=== PATIENT | female | born 1950 | race Caucasian/White ===

== ENCOUNTER → 2017-02-10 | Outpatient (CLI) | payer MEDICARE, BC ==
--- NOTE | 2017-02-10 11:50 | MM ---
Reason for exam: additional evaluation requested from prior study. Last mammogram was performed 1 year ago. History: Patient is postmenopausal, has history of breast cancer at age 61, has history of high-risk lesion on a previous biopsy at age 53, and history of other cancer. Family history of premenopausal breast cancer in sister at age 30 and breast cancer in sister at age 50. Mastectomy of the left breast, February 15, 2012. Malignant US LT VAD breast biopsy of the left breast, January 31, 2012. Silicone gel implant in the left breast, 2011. Benign right mammotome panel of the right breast, July 22, 2005. Stereotactic core biopsy of the left breast, June 24, 2004. 2 cyst aspirations of the left breast. Cyst aspiration of the right breast. Excisional biopsy of the left breast. Took estrogen for 6 years beginning at age 52. Taking antineoplastic for 4 years beginning at age 61. Took other hormone for 3 years. Physical Findings: Nurse did not find any significant physical abnormalities on exam. MG 3D Diag Mammo W/Cad RT CC and MLO view(s) were taken of the right breast. Prior study comparison: February 10, 2016, right breast MG 3d diag mammo w/cad RT. February 07, 2015, right breast MG diagnostic mammo RT w CAD. The breast tissue is heterogeneously dense. This may lower the sensitivity of mammography. No suspicious calcifications or masses are seen. No significant new findings when compared with previous films. These results were verbally communicated with the patient and result sheet given to the patient on 02/10/17. ASSESSMENT: Negative, BI-RAD 1 RECOMMENDATION: Follow-up diagnostic mammogram of the right breast in 1 year.
--- NOTE | 2017-02-10 13:44 | BD ---
EXAMINATION TYPE: MG DEXA axial skeleton. DATE OF EXAM: 02/10/2017 CLINICAL HISTORY: 95.1 POST MENOPAUSAL Height: 61 inches Weight: 127 pounds FRAX RISK QUESTIONS: Alcohol (3 or more units per day): no Family History (Parent hip fracture): no Glucocorticoids (More than 3mos): no (Ex: prednisone, prednisolone, methylprednisolone, dexamethasone, and hydrocortisone). History of Fracture in Adulthood: no Secondary Osteoporosis: 1. Type 1 Diabetes: no 2. Hyperthyroidism: no 3. Menopause before 45: hysterectomy age 32; menopause age 49 4. Malnutrition: no 5. Chronic liver disease: no Rheumatoid Arthritis: no Current Tobacco Use: no RISK FACTORS HISTORY OF: Family History of Osteoporosis: yes Drink Alcohol: occasionally Active: yes Diet low in dairy products/other sources of calcium: at least one serving a day Postmenopausal woman: yes Take estrogen and/or progesterone medications: not now How long: about 6 years Lost more than 2 inches in height since high school: no Frequent falls: no Poor Health: no Hyperparathyroidism: no Adrenal Insufficiency: no MEDICATIONS: Prednisone or other steroids: no Thyroid Medications: no Osteoporosis Medications: not now Which medication: Boniva How Long: about one year Other Medications: Tamoxifen How long: about 5 years Additional History: Breast CA, Chemo EXAM MEASUREMENTS: Bone mineral densitometry was performed using the [employer] System. Bone mineral density as measured about the Lumbar spine is: ----- L1-L4(G/cm2): 1.008 T Score Values are as follows: ----- L2: -1.6 ----- L3: -1.2 ----- L4: -0.6 ----- L1-L4: -1.0 Bone mineral density has: Increased 1.8% since study of: 02/07/2015 Bone mineral density about the R hip (g/cm2): 0.750 Bone mineral density about the L hip (g/cm2): 0.745 T Score values are as follows: -----R Neck: -2.1 -----L Neck: -2.1 -----R Total: -1.4 -----L Total: -1.5 Bone mineral density has: Increased 0.9% since study of: 02/07/2015 IMPRESSION: Normal (Values between +1 and -1 indicate normal bone mass). Consider repeating this study in 5 year s or sooner if there is some new clinical indication. L4 Osteopenia (T Score between -2.5 and -1 as noted by T score values L2, L3, Bilateral Necks, & Bilat eral Totals There is slightly increased risk of fracture and the patient may be considered for treatment. Re-Screen 2-5 years. NOTE: T-SCORE=SD OF THE YOUNG ADULT MEAN.
== END | disposition home or self-care (01) ==
LOC: RADMAMWWP 09:44
PROVIDERS: ATTEND Internal Medicine Hematology & Oncology
DX: C50.312 Malignant neoplasm of lower-inner quadrant of left female breast (principal); M85.88 Other specified disorders of bone density and structure, other site; N95.1 Menopausal and female climacteric states; Z85.3 Personal history of malignant neoplasm of breast
CPT/HCPCS: 77080; G0206; G0279

== ENCOUNTER → 2018-02-14 | Outpatient (CLI) | payer MEDICARE, BC ==
--- NOTE | 2018-02-14 10:47 | MM ---
Reason for exam: history of breast cancer, mastectomy. Last mammogram was performed 1 year ago. History: Patient is postmenopausal, has history of breast cancer at age 61, has history of high-risk lesion on a previous biopsy at age 53, and history of other cancer. Family history of premenopausal breast cancer in sister at age 30 and breast cancer in sister at age 50. Mastectomy of the left breast, February 15, 2012. Malignant US LT VAD breast biopsy of the left breast, January 31, 2012. Silicone gel implant in the left breast, 2011. Benign right mammotome panel of the right breast, July 22, 2005. Stereotactic core biopsy of the left breast, June 24, 2004. 2 cyst aspirations of the left breast. Cyst aspiration of the right breast. Excisional biopsy of the left breast. Took estrogen for 6 years beginning at age 52. Taking antineoplastic for 4 years beginning at age 61. Took other hormone for 3 years. Physical Findings: Nurse did not find any significant physical abnormalities on exam. MG 3D Diag Mammo W/Cad RT CC and MLO view(s) were taken of the right breast. Prior study comparison: February 10, 2017, right breast MG 3d diag mammo w/cad RT. February 10, 2016, right breast MG 3d diag mammo w/cad RT. The breast tissue is heterogeneously dense. This may lower the sensitivity of mammography. No significant new findings when compared with previous films. These results were verbally communicated with the patient and result sheet given to the patient on 02/14/18. ASSESSMENT: Benign, BI-RAD 2 RECOMMENDATION: Follow-up diagnostic mammogram of the right breast in 1 year.
== END | disposition home or self-care (01) ==
LOC: RADMAMWWP 09:41
PROVIDERS: ATTEND Internal Medicine Hematology & Oncology
DX: Z08 Encounter for follow-up examination after completed treatment for malignant neoplasm (principal); Z98.82 Breast implant status; Z85.3 Personal history of malignant neoplasm of breast
CPT/HCPCS: 77065; G0279; 77061

== ENCOUNTER → 2018-05-12 | Outpatient (CLI) | payer MEDICARE, BC ==
[2018-05-12 10:56] LABS: Basophils # (A) 0.1 k/uL (0-0.2); Basophils % (A) 1 %; Eosinophils # (A) 0.5 k/uL (0-0.7); Eosinophils % (A) 8 %; HCT 40.6 % (34.0-46.0); HGB 12.6 gm/dL (11.4-16.0); Lymphocytes # (A) 1.9 k/uL (1.0-4.8); Lymphocytes % (A) 27 %; MCH 28.8 pg (25.0-35.0); Mean Platelet Volume 8.9; Monocytes # (A) 0.7 k/uL (0-1.0); Monocytes % (A) 10 %; Neutrophils # (A) 3.7 k/uL (1.3-7.7); Neutrophils % (A) 53 %; Platelet Count 183 k/uL (150-450); RBC 4.36 m/uL (3.80-5.40); RDW 14.3 % (11.5-15.5)
[2018-05-12 11:02] LABS: Appearance,Urine Clear (Clear); Color,Urine Yellow; PH, Urine 5.5 (5.0-8.0); Protein,Urine Negative (Negative); Specific Gravity,Urine 1.017 (1.001-1.035)
[2018-05-12 11:03] LABS: Bilirubin,Urine Negative (Negative); Blood,Urine Negative (Negative); Glucose,Urine (UA) Negative (Negative); Ketones,Urine Negative (Negative); Leukocyte Esterase,Urine Small (Negative); Mucus,Urine Rare /hpf; Nitrite,Urine Negative (Negative); RBC,Urine 2 /hpf (0-5); Squamous Epithelial Cell,Urine 1 /hpf (0-4); Urobilinogen,Urine <2.0 mg/dL (<2.0); WBC,Urine 3 /hpf (0-5)
--- NOTE | 2018-05-12 11:09 | XR ---
EXAM TYPE: LUMBAR SPINE X RAY SERIES COMPARISON: 08/28/2014 HISTORY: Lower back pain TECHNIQUE: 3 views are submitted. FINDINGS: Alignment is anatomic. The pedicles are intact. The transverse processes are intact. There is no s pondylolysis or spondylolisthesis. Calcifications in the right upper quadrant noted. There is degene rative disc disease involving levels L2-S1. Multilevel facet arthropathy seen. No compression deformi ties. IMPRESSION: 1. Multilevel moderate degenerative disc disease.
[2018-05-12 11:40] LABS: Albumin 3.8 g/dL (3.5-5.0); Calcium 9.3 mg/dL (8.4-10.2); Potassium 4.5 mmol/L (3.5-5.1); Total Bilirubin 0.4 mg/dL (0.2-1.3); Uric Acid 4.3 mg/dL (3.7-7.4)
[2018-05-12 11:50] LABS: T4, Free (Free Thyroxine) 0.85 ng/dL (0.78-2.19)
[2018-05-12 19:43] LABS: Hemoglobin A1C 5.2 % (4.0-6.0)
== END | disposition home or self-care (01) ==
LOC: LABWHC1 10:25
PROVIDERS: ATTEND Internal Medicine
DX: M51.37 Other intervertebral disc degeneration, lumbosacral region (principal); Z00.00 Encounter for general adult medical examination without abnormal findings; M24.10 Other articular cartilage disorders, unspecified site; C50.912 Malignant neoplasm of unspecified site of left female breast; F32.89 Other specified depressive episodes; R00.1 Bradycardia, unspecified
CPT/HCPCS: 36415; 72100; 80053; 80061; 81001; 82306; 82550; 83036; 84439; 84443; 84550; 85025

== ENCOUNTER → 2019-02-16 | Outpatient (CLI) | payer MEDICARE, BC ==
--- NOTE | 2019-02-16 11:52 | MM ---
Reason for exam: additional evaluation requested from prior study. Last mammogram was performed 1 year ago. History: Patient is postmenopausal, has history of breast cancer at age 61, has history of high-risk lesion on a previous biopsy at age 53, and history of other cancer. Family history of premenopausal breast cancer in sister at age 30 and breast cancer in sister at age 50. Mastectomy of the left breast, February 15, 2012. Malignant US LT VAD breast biopsy of the left breast, January 31, 2012. Silicone gel implant in the left breast, 2011. Benign right mammotome panel of the right breast, July 22, 2005. Stereotactic core biopsy of the left breast, June 24, 2004. 2 cyst aspirations of the left breast. Cyst aspiration of the right breast. Excisional biopsy of the left breast. Took estrogen for 6 years beginning at age 52. Taking antineoplastic for 4 years beginning at age 61. Took other hormone for 3 years. Physical Findings: Nurse did not find any significant physical abnormalities on exam. MG 3D Diag Mammo W/Cad RT CC and MLO view(s) were taken of the right breast. Prior study comparison: February 14, 2018, right breast MG 3d diag mammo w/cad RT. February 10, 2017, right breast MG 3d diag mammo w/cad RT. The breast tissue is heterogeneously dense. This may lower the sensitivity of mammography. Right biopsy marker noted. These results were verbally communicated with the patient and result sheet given to the patient on 02/16/19. ASSESSMENT: Benign, BI-RAD 2 RECOMMENDATION: Follow-up diagnostic mammogram of the right breast in 1 year.
== END ==
LOC: RADMAMWWP 09:18
PROVIDERS: ATTEND Internal Medicine Hematology & Oncology
DX: Z08 Encounter for follow-up examination after completed treatment for malignant neoplasm (principal); Z85.3 Personal history of malignant neoplasm of breast
CPT/HCPCS: 77065; G0279; 77061

== ENCOUNTER → 2019-04-04 | Outpatient (CLI) | payer MEDICARE, BC ==
--- NOTE | 2019-04-04 21:41 | MR ---
EXAMINATION TYPE: MR lumbar spine wo con DATE OF EXAM: 04/04/2019 COMPARISON: Lumbar spine x-ray May 12, 2018. HISTORY: Lumbar region spondylosis per order. Increasing back pain for 6 months into bilateral buttoc ks and left side per patient. TECHNIQUE: Multiplanar, multisequence imaging of the lumbar spine is performed without IV contrast. FINDINGS: Sagittal images of the lumbar spine show vertebral body heights and alignment to appear sat isfactory. Multilevel disc desiccation is seen multilevel. Wijx-ck-qahxbsul disc space narrowing is present. The conus medullaris is normal in position and signal ending superior L1 level. Mild multile salena anterior spurring is present. There is marked abnormal low T1 signal diffusely throughout the L4 vertebra with slightly hypointense T2 signal relative to adjacent vertebra. Bone marrow signal intens ity is overall heterogeneous. There is a similar ovoid lesion in the posterior S1 vertebra sagittal i mage 6 though is more T2 isointense to hyperintense. Few scattered Schmorl nodes are present. Axial images beginning at the T11-T12 vertebra image 33 which is felt within normal limits. Axial ana ges at T12-L1 and L1-L2 vertebra are within normal limits. Axial images at the L2-L3 vertebra show mild broad-based posterior disc protrusion minimally effacing the anterior thecal sac. Mild facet degenerative changes are present bilaterally. Axial images at the L3-L4 vertebra show mild to moderate central disc protrusion mildly effacing ante rior thecal sac. Mild 2 moderate facet degenerative changes are present bilaterally. Axial images at the L4-L5 level show mild/moderate facet degenerative changes bilaterally. There is t iny central disc protrusion minimally effacing anterior thecal sac. Bilateral neural foramina are pat ent. Axial images at L5-S1 level are felt within normal limits. There is suggestion of additional low T1 and increased T2 signal lesion involving the left sacrum and left iliac bone centered at sacroiliac joint. IMPRESSION: Suspicious bony lesions involving the L4 vertebra diffusely as well as the posterior left S1 vertebra and the left sacrum and left iliac bone. Myeloma and metastatic disease need to be stron gly considered. Further investigation with whole-body bone scan is advised and/or bone survey/x-ray c orrelation.
== END | disposition home or self-care (01) ==
LOC: RADMRIMAIN 11:02
PROVIDERS: ATTEND Internal Medicine
DX: M47.896 Other spondylosis, lumbar region (principal)
CPT/HCPCS: 72148

== ENCOUNTER 2019-04-11 22:51 | Emergency (ER) | payer MEDICARE, BC ==
[2019-04-11 23:06] VITALS: RESP 16
[2019-04-11] MEDS ORDERED: DIAZEPAM 5 MG/ML 2 ML INJ IVP STA (23:37)
[2019-04-11] MEDS ORDERED: KETOROLAC 30 MG/ML 1 ML VIAL IVP STA (23:37)
[2019-04-11] MEDS ORDERED: HYDROmorphone 0.5 MG/0.5 ML SYRINGE IVP STA (23:37)
[2019-04-12] MEDS ORDERED: HYDROcodone/APAP 5-325MG 1 EACH TAB PO STA (00:52)
[2019-04-12] MEDS ORDERED: methylPREDNISolone SOD SUCCI 125 MG/2 ML VIAL IV STA (00:52)
--- NOTE | 2019-04-12 01:18 | XR ---
EXAM: XR Lumbar Spine, 2 or 3 Views CLINICAL HISTORY: ITS.REASON XR Reason: metastatic ca; known L4 lesion r/o pathologic fx TECHNIQUE: Frontal and lateral views of the lumbar spine. COMPARISON: MRI lumbar spine 04/04/19 Impression: Vertebrae: Mild wedging of L4 is again seen. No significant malalignment. Disc spaces: Mild degenerative changes. Soft tissues: Unremarkable.
--- NOTE | 2019-04-12 01:43 | ED ---
Back Pain HPI - General Chief Complaint: Back Pain/Injury Stated Complaint: Back Pain Time Seen by Provider: 04/11/19 23:22 Source: patient Limitations: physical limitation - History of Present Illness Initial Comments: 68-year-old female patient presents to the emergency department today for evaluation of increased lower back pain with radiation down the right leg. Patient states chest prior to arrival she was going from a sitting to a standing position from a chair when she had sudden sharp pain to the low back. Patient states the pain is radiating down the right hip in the front of the right leg. She denies any numbness or tingling to the lower extremities. Denies any loss of bowel or bladder control. Denies any saddle anesthesia. Patient has been having increased low back pain and hip pain. States that she had abnormal lesions for which she underwent a bone scan today. She denies any fever or chills. Denies any significant abdominal pain. Denies any hematuria, dysuria, urinary frequency, urinary urgency. Denies any known injury other than position change. Patient denies any recent rash, shortness breath, chest pain, abdominal pain, nausea, vomiting, diarrhea, constipation, dizziness, weakness, hematuria, dysuria, urinary urgency, urinary frequency, headache, visual changes, or any other complaints. - Related Data Previous Rx's Medication Instructions Recorded Hydrocodone/Acetaminophen [[place] 1 tab PO Q6HR PRN #12 tab 04/12/19 5-325] Naproxen [EC-Naprosyn] 500 mg PO BID PRN #30 tablet. 04/12/19 predniSONE 50 mg PO DAILY #5 tablet 04/12/19 Allergies Allergy/AdvReac Type Severity Reaction Status Date / Time butorphanol [From Stadol] Allergy Unknown Verified 04/12/19 00:18 meperidine [From Demerol] Allergy Unknown Verified 04/12/19 00:18 Sulfa (Sulfonamide Allergy Anaphylaxis Verified 04/12/19 00:18 Antibiotics) Review of Systems ROS Statement: Those systems with pertinent positive or pertinent negative responses have been documented in the HPI. ROS Other: All systems not noted in ROS Statement are negative. Past Medical History Past Medical History: No Reported History Additional Past Medical History / Comment(s): breast CA History of Any Multi-Drug Resistant Organisms: None Reported Additional Past Surgical History / Comment(s): Mastectomy Past Psychological History: No Psychological Hx Reported Smoking Status: Never smoker Past Alcohol Use History: None Reported Past Drug Use History: None Reported General Exam Limitations: physical limitation General appearance: alert, in no apparent distress, other (This is a well- developed, well-nourished adult female patient in no acute distress. Vital signs upon presentation are temperature 98.3F, pulse 83, respiration 16, blood pressure 134/80, pulse ox 98% on room air.) Eye exam: Present: normal appearance, PERRL, EOMI. Absent: scleral icterus, conjunctival injection, periorbital swelling ENT exam: Present: normal exam, normal oropharynx, mucous membranes moist Respiratory exam: Present: normal lung sounds bilaterally Cardiovascular Exam: Present: regular rate, normal rhythm, normal heart sounds. Absent: systolic murmur, diastolic murmur, rubs, gallop, clicks GI/Abdominal exam: Present: soft, normal bowel sounds. Absent: distended, tenderness, guarding, rebound, rigid Extremities exam: Present: normal inspection, full ROM, normal capillary refill, other (Skin to the lower extremity is is pink, warm, and dry. Cap refills less than 3 seconds. Pedal and posttibial pulses are 2+ and equal bilaterally.). Absent: tenderness, pedal edema, joint swelling, calf tenderness Neurological exam: Present: alert, oriented X3, CN II-XII intact Psychiatric exam: Present: normal affect, normal mood Skin exam: Present: warm, dry, intact, normal color. Absent: rash Course Vital Signs 04/11/19 23:03 Temperature 98.3 F Pulse Rate 83 Respiratory 16 Rate Blood Pressure 134/80 O2 Sat by Pulse 98 Oximetry Medical Decision Making - Medical Decision Making 68-year-old female patient presented to the emergency department today for evaluation of increased low back pain with radiation down the right leg. Physical examination was unremarkable. She is neurologically intact with no focal deficits. Patient was given IV pain medication with the follow-up with oral pain medication. Upon reevaluation she does report improvement of symptoms. She is able to ambulate more easily. Still reports significant discomfort with changing position. She'll be discharged home with pain medication, anti-inflammatory, and steroids. She is instructed to follow-up with her primary care physician, she does have an appointment tomorrow. Return parameters were discussed in detail. She verbalizes understanding and agrees with this plan. - Radiology Data Radiology results: report reviewed, image reviewed 2 views of lumbar spine are obtained. Report was reviewed in its entirety. Impression by Dr. Lopes shows mild wedging of the L4. No significant malalignment. Mild degenerative changes. Unremarkable soft tissues. Disposition Clinical Impression: Acute low back pain, Lumbar radiculopathy Disposition: HOME SELF-CARE Condition: Good Instructions (If sedation given, give patient instructions): Acute Low Back Pa in (ED), Lumbar Radiculopathy (ED) Additional Instructions: Take medications as directed. Perform gentle range of motion exercises. Follow-up with your primary care physician tomorrow as you have planned. Return to the emergency department immediately for any new, worsening, or concerning symptoms. Prescriptions: Naproxen [EC-Naprosyn] 500 mg PO BID PRN #30 tablet.dr BOSE Reason: Pain Hydrocodone/Acetaminophen [[place] 5-325] 1 tab PO Q6HR PRN #12 tab PRN Reason: Pain predniSONE 50 mg PO DAILY #5 tablet Is patient prescribed a controlled substance at d/c from ED?: Yes When asked, does pt state using other controlled substances?: No If prescribed controlled substance>3 days was MAPS reviewed?: Prescribed <3 Days If opioid is for acute pain is fill amount 7 days or less?: Yes If Rx opioid, was Start Talking consent form obtained?: Yes Referrals: Tianna Hebert MD [Primary Care Provider] - 1-2 days Time of Disposition: 01:49
[2019-04-12 02:13] VITALS: BP 121/89; PULSE 72; TEMP 98.9
== END 2019-04-12 02:06 | disposition home or self-care (01) ==
LOC: EC 22:51
DX: M54.16 Radiculopathy, lumbar region (principal); Z85.3 Personal history of malignant neoplasm of breast; Z88.5 Allergy status to narcotic agent; Z88.2 Allergy status to sulfonamides
CPT/HCPCS: 99283 ×2; 96374 ×2; 96375 ×5; 72110; 78306; A9503; J2930; J3360; J1885; J1170

== ENCOUNTER → 2019-04-11 | Outpatient (CLI) | payer MEDICARE, BC ==
--- NOTE | 2019-04-11 15:19 | NM ---
EXAMINATION TYPE: NM bone scan whole body DATE OF EXAM: 04/11/2019 COMPARISON: MR lumbar spine 04/04/2019, prior bone scan dated 01/20/2015 HISTORY: Abnormal MRI Delayed whole-body scanning was performed following the injection of 24.1 mCi Tc 99m MDP. Images acq uired 3 hours post injection. FINDINGS: There is abnormal increased pharmaceutical uptake involving the left posterior ilium, the L4 vertebra l body and sacrum as on prior MRI. Soft tissue uptake is normal. No additional abnormal areas suspici ous uptake. Uptake within the wrists, shoulders, sternoclavicular joints is likely degenerative. IMPRESSION: Findings consistent with metastatic disease
== END | disposition home or self-care (01) ==
LOC: RADNMMAIN 10:14
PROVIDERS: ATTEND Internal Medicine
DX: S34.112A Complete lesion of L2 level of lumbar spinal cord, initial encounter (principal)
CPT/HCPCS: 78306; A9503

== ENCOUNTER → 2019-04-14 | Outpatient (CLI) | payer MEDICARE, BC ==
--- NOTE | 2019-04-14 19:34 | PE ---
EXAMINATION TYPE: PET CT fusion skull to thigh DATE OF EXAM: 04/14/2019 COMPARISON: Whole body bone scan April 11, 2019. MRI lumbar spine April 04, 2019 HISTORY: History of left-sided breast cancer originally diagnosed 2011 with new osseous metastatic di leticia discovered. TECHNIQUE: Following the intravenous administration of 13.09 mCi of F-18 FDG, whole body images are performed from the skull base to the midthigh. Images are reviewed on the computer in the coronal, a xial, and sagittal planes. Reconstructed rotating images are created on independent workstation and reviewed on the computer. A noncontrast CT is performed in conjunction with the PET scan. SCAN: Subsequent Scan FINDINGS: SKULL BASE AND NECK: No areas of suspicious hypermetabolic uptake. CHEST, MEDIASTINUM, AND HILAR REGION: There are scattered bilateral pulmonary nodules particularly in the upper lobes some which have cavitation. Largest lesion in the posterior inferior left upper lobe measures 1.9 x 1.7 cm axial image 98 with max SUV of 6.49. Additional scattered smaller nodules have Max SUV less than 2.5 but remain suspicious. No suspicious hypermetabolic uptake in either breast or axillary region. ABDOMEN AND PELVIS: No definitive hypermetabolic uptake. OSSEOUS STRUCTURES: Abnormal hypermetabolic uptake in L4 vertebra with max SUV 7.04 correlates with b one scan and MRI. Abnormal hypermetabolic uptake left iliac bone were larger area extending to sacroi liac joint with max SUV of 4.58 extends to include the left sacrum where there is lytic destruction n oted axial image 196 correlates with recent bone scan. No definitive additional hypermetabolic bone lesions are present. Findings correlate with recent bone scan. OTHER CT: Left breast implant noted. Simple appearing thin-walled cyst right hepatic lobe axial image 129 is present. Uterus is surgically absent or markedly atrophic. Scattered pelvic phleboliths. IMPRESSION: Redemonstration of known osseous metastatic disease involving L4 vertebra as well as le ft sacrum and iliac bone. Metastatic disease to the lung is felt present although slightly unusual in it is more upper lobe in distribution.
== END | disposition home or self-care (01) ==
LOC: RADPETMAIN 13:22
PROVIDERS: ATTEND Internal Medicine Hematology & Oncology
DX: C79.51 Secondary malignant neoplasm of bone (principal); C50.312 Malignant neoplasm of lower-inner quadrant of left female breast
CPT/HCPCS: 78815; A9552

== ENCOUNTER → 2019-06-01 | Outpatient (CLI) | payer MEDICARE, BC ==
--- NOTE | 2019-06-01 14:28 | XR ---
EXAMINATION TYPE: XR Hip LT and AP Pelvis DATE OF EXAM: 06/01/2019 COMPARISON: Nuclear medicine PET/CT 04/14/2019 HISTORY: Breast cancer TECHNIQUE: The abnormal left sacrum noted on the PET/CT shows some mild decreased mineralization as c ompared to the right sacrum, the focus of abnormal density involving the posterior left ilium is only vaguely appreciated on plain film. Left hip shows no fracture or dislocation, small ossific densitie s present at the level of the trochanter which is well-corticated. IMPRESSION: Metastatic disease to the pelvis involving the left sacrum and posterior left ilium is no t as well appreciated on plain film.
== END | disposition home or self-care (01) ==
LOC: RADXRMAIN 13:49
PROVIDERS: ATTEND Internal Medicine Hematology & Oncology
DX: C50.312 Malignant neoplasm of lower-inner quadrant of left female breast (principal); C43.9 Malignant melanoma of skin, unspecified; I34.1 Nonrheumatic mitral (valve) prolapse; G43.119 Migraine with aura, intractable, without status migrainosus
CPT/HCPCS: 73502

== ENCOUNTER → 2019-06-07 | Outpatient (CLI) | payer MEDICARE, BC ==
[2019-06-07 11:42] LABS: African American GFR (CKD) >90 (>60 ml/min/1.73 sqM); Blood Urea Nitrogen 20 mg/dL (7-17)
--- NOTE | 2019-06-07 12:17 | CT ---
CT CHEST FOR PULMONARY EMBOLISM. EXAMINATION TYPE: CT angio chest DATE OF EXAM: 06/07/2019 INDICATION: Shortness of breath. CT DLP: 135.8 mGycm, Automated exposure control for dose reduction was used. CONTRAST: Patient injected with 75 mL of Isovue M300. COMPARISON: PET localization CT 04/14/2019 TECHNIQUE: CT of the chest is performed on a spiral scan at 2 mm thick sections. Study is performed with intravenous contrast timed for evaluation for pulmonary embolism. This will limit additional po rtions of the evaluation. 3-D MIP images reconstructed by the technologist are reviewed on the compu ter in the coronal and sagittal planes. FINDINGS: No persistent filling defects are evident to suggest an acute pulmonary embolism. Small amount reflux es into the proximal inferior vena cava. No mediastinal or hilar adenopathy enlarged by CT criteria is evident. The ascending aorta diameter at the level of the main pulmonary artery is 2.9 cm. The main pulmonary artery diameter at the bifur cation is 2.1 cm. There is a 1.1 cm lobular mass in the superior medial right apex. Series 5 image 19. There is a spicu lated 0.7 cm mass right upper middle lobe. Series 5 image 34. There is a 1.0 cm irregular mass superi or segment left lower lobe. Series 5 image 40. 0.6 cm masses in the anterior left mid lung. Series 5 image 43. A 0.5 cm mass in the mid left lung. Series 5 image 43. There is a 1.6 cm spiculated mass pe riphery of the left midlung. Series 5 image 58. There is a 1.0 cm lingular irregular mass, series 5 i mage 83. A couple of smaller areas of abnormal increased density are also present within the bilatera l lungs. Findings are compatible with and suspicious for metastatic disease. These are stable or sli ghtly smaller than the comparison of 04/14/2019. Limited CT sections were obtained through the upper abdomen. There is an ill-defined 1.4 cm hypodensi ty with indistinct borders in the lateral right upper lobe of the liver. This area is present on the PET/CT of 04/14/2019 but is not hyperintense suggesting cyst is more likely within the differential. IMPRESSIONS: 1. No acute pulmonary embolism. 2. Multiple bilateral lung metastases present previously.
== END | disposition home or self-care (01) ==
LOC: RADCTMAIN 11:00
PROVIDERS: ATTEND Registered Nurse Oncology
DX: C80.1 Malignant (primary) neoplasm, unspecified (principal); C78.01 Secondary malignant neoplasm of right lung; C78.02 Secondary malignant neoplasm of left lung; Z88.2 Allergy status to sulfonamides; Z88.6 Allergy status to analgesic agent
CPT/HCPCS: 82565; 84520; 71275; 36415; Q9967

== ENCOUNTER → 2019-07-13 | Outpatient (CLI) | payer MEDICARE, BC ==
--- NOTE | 2019-07-14 19:16 | MR ---
EXAMINATION TYPE: MR pelvis wo/w con DATE OF EXAM: 07/13/2019 COMPARISON: HISTORY: Left pelvic/hip pain, hx breast ca w mets CONTRAST: Standard multiplanar, multisequence MRI departmental protocol utilizing 6.5 mL intravenous Gadavist g adolinium contrast. FINDINGS: On the T1 images there is a large area of abnormal decreased signal on both sides of the le ft sacroiliac joint that shows pathologic enhancement w con consistent with metastatic disease. This measures 7 x 3.5 cm. There is also decreased signal in the L4 vertebral body consistent with metastat ic disease. There is abnormal decreased signal in the posterior aspect of the S1 vertebra. There is no evidence of a pelvic mass. There is no free fluid in the pelvis. The proximal femurs have fairly normal signal pattern without evidence of edema. There is no evidence of avascular necrosis. The acetabula appear intact. The abnormal activity in the left side of the sacrum extends into the sp inal canal region to some extent on the left side. IMPRESSION: Multiple areas of abnormal signal in the L4 and S1 vertebra as well as the lateral mass of the sacrum on the left side and the left ilium at the sacroiliac joint consistent with metastatic disease. At t his point there is not a significant encroachment on the neural elements.
== END | disposition home or self-care (01) ==
LOC: RADMRIMAIN 18:36
PROVIDERS: ATTEND Internal Medicine Hematology & Oncology
DX: R19.09 Other intra-abdominal and pelvic swelling, mass and lump (principal); M25.552 Pain in left hip
CPT/HCPCS: 72197; A9585

== ENCOUNTER → 2019-07-16 | Outpatient (CLI) | payer MEDICARE, BC ==
--- NOTE | 2019-07-17 03:30 | MR ---
EXAMINATION TYPE: MR brain wo/w con DATE OF EXAM: 07/16/2019 COMPARISON: NONE HISTORY: 68-year-old female with history of Breast Ca, headaches/blurred vision TECHNIQUE: Multiplanar, multisequence images of the brain and brainstem were acquired before and aft er administration of 6.5 mL IV Gadavist. Diffusion weighted imaging is performed. FINDINGS: No evidence for acute infarction, hemorrhage, mass, mass effect, midline shift, herniation, effacemen t of basal cisterns, or extra-axial fluid collection. The ventricles and sulci are age-appropriate. Major intracranial flow voids are intact. Hypoplastic A1 segment left anterior cerebral artery. T2/FLAIR weighted sequences show prominent perivascular spaces in the region of the basal ganglia. Ve ry mild scattered T2 bright white matter change especially in the periventricular and deep white silvia er regions of the cerebral hemispheres with less than full-foci in each side. Midline structures demonstrate normal morphology. The craniocervical junction is normal. Post contrast images demonstrate a tiny 5 mm focus of enhancement within the left cerebellar hemisphe re, postcontrast axial image 16, sagittal image 46, and coronal image 68. Some prominent vasculature is favored given the lack of vasogenic edema here on T2 FLAIR. Otherwise, no evidence of pathologic enhancement. Dural venous sinuses are patent. Scattered mild mucosal thickening ethmoid air cells. The globes are intact. IMPRESSION: 1. No acute intracranial abnormality seen. 2. Tiny 5 mm enhancing focus in the left cerebellar hemisphere. The lack of vasogenic edema here rais es the possibility of prominent vasculature rather than a metastatic focus at this time. Short interv al follow-up recommended. 3. No other suspicious enhancing intracranial lesions. 4. Minimal burden of chronic small vessel ischemic disease.
== END | disposition home or self-care (01) ==
LOC: RADMRIMAIN 13:11
PROVIDERS: ATTEND Internal Medicine Hematology & Oncology
DX: I67.82 Cerebral ischemia (principal); C50.312 Malignant neoplasm of lower-inner quadrant of left female breast
CPT/HCPCS: 70553; A9585

== ENCOUNTER → 2019-07-17 | Outpatient (CLI) | payer MEDICARE, BC ==
--- NOTE | 2019-07-17 20:34 | MR ---
EXAMINATION TYPE: MR lumbar spine wo/w con DATE OF EXAM: 07/17/2019 COMPARISON: MRI lumbar spine April 04, 2019 HISTORY: LBP, LLE radic, metastatic breast ca TECHNIQUE: Multiplanar, multisequence images of the lumbar spine is performed without and with IV contrast, util izing 6.5 mL intravenous Gadavist FINDINGS: Sagittal images of the lumbar spine show vertebral body heights and alignment to remain sat isfactory. Multilevel disc desiccation with multilevel fairly moderate disc space narrowing is redemo nstrated. The conus medullaris remains normal in position and signal ending at L1 level. Marked low T1 signal and enhancement through L4 vertebra along with the posterior aspect S1 vertebra suspicious for osseous metastatic lesions redemonstrated. Prominent Schmorl node superior L2 endplate. Probable new enhancing lesion in inferior L3 vertebra sagittal image 8. Axial images at the L1-L2 remain within normal limits. Axial images at the L2-L3 level show mild broad disc bulge minimally effaces the anterior thecal sac with mild facet degenerative changes bilaterally. No significant change from prior. Axial images at the L3-L4 vertebra to moderate facet degenerative changes bilaterally. There is mild to moderate broad disc bulge and central disc protrusion component effacing anterior thecal sac. Bila teral neural foramina are patent. Axial images at the L4-L5 vertebra to moderate facet degenerative changes bilaterally. There are cent ral disc protrusion mildly facing anterior thecal sac. Bilateral neural foramina are patent. Axial images at the L5-S1 vertebra show mild facet degenerative changes bilaterally. Spinal canal is preserved. Bilateral neural foramina are patent. There is redemonstration of suspicious metastatic lesion left iliac bone near sacroiliac joint. IMPRESSION: Osseous metastatic disease redemonstrated. Multilevel degenerative changes again seen. No significant change or progression from recent prior MRI.
== END | disposition home or self-care (01) ==
LOC: RADMRIMAIN 14:39
PROVIDERS: ATTEND Internal Medicine Hematology & Oncology
DX: M47.816 Spondylosis without myelopathy or radiculopathy, lumbar region (principal); C50.312 Malignant neoplasm of lower-inner quadrant of left female breast; C79.51 Secondary malignant neoplasm of bone
CPT/HCPCS: 72158; A9585

== ENCOUNTER → 2019-07-20 | Outpatient (CLI) | payer MEDICARE, BC ==
--- NOTE | 2019-07-24 10:50 | PE ---
Nuclear medicine PET/CT HISTORY: Breast carcinoma, subsequent Patient received 12.6 mCi F-18 FDG intravenously in delayed scanning was performed from skull base to the mid thighs. Localization and attenuation correction CT scan was performed. Correlation to prior nuclear medicine PET/CT 04/14/2019, MR lumbar spine 07/17/2019, MR brain 07/16/2019, MR pelvis 07/13/2019 Neck and chest: The previously identified lung nodule in the superior segment of the left lower lobe measures slightly diminished in size 13 mm as compared to prior exam is slightly greater than 15 mm, hypermetabolic uptake diminished. Left upper lobe nodule is also diminished slightly in size on axial image 71. Left upper lobe nodule adjacent to the fissure measures 18 mm as compared to prior exam wh en it measured 23 mm, hypermetabolic uptake is also reduced, SUV only 1.5 as compared to prior SUV 6. 5. Patient shows post left mastectomy change. The lingula nodule seen on prior exam is not as well de fined. Right-sided lung nodules are also less well-defined, no suspicious hypermetabolic uptake. Ther e is no pleural or pericardial effusion. No mediastinal, axillary adenopathy. Left hilum shows mild i ncreased uptake, SUV 3.5. Low-attenuation focus within the right lobe of the liver is stable and likely represents a cyst measu ring 17 mm in AP dimension. There is no retroperitoneal adenopathy or ascites. No suspicious hypermet abolic uptake. Uterus and adnexal structures are not seen. Osseous structures: Healing inferior left pubic ramus fracture is present which was not seen on prior exam in AP pathologic fracture. The abnormal appearance of the left sacrum and left ilium has improv ed with some bone mineralization as compared to prior exam, there is hypermetabolic uptake SUV 5.1. T he L4 vertebral body abnormal appearance is somewhat more sclerotic compared to prior, SUV 5.7 as has the left aspect of the L2 vertebral body. IMPRESSION: There is tumor response, improvement in patient's metastatic disease as described. Possib le pathologic fracture inferior pubic ramus on the left.
== END | disposition home or self-care (01) ==
LOC: RADPETMAIN 17:59
PROVIDERS: ATTEND Internal Medicine Hematology & Oncology
DX: C50.312 Malignant neoplasm of lower-inner quadrant of left female breast (principal); C79.9 Secondary malignant neoplasm of unspecified site
CPT/HCPCS: 78815; A9552

== ENCOUNTER → 2019-11-06 | Outpatient (CLI) | payer MEDICARE ==
--- NOTE | 2019-11-06 17:00 | MR ---
EXAMINATION TYPE: MR brain wo/w con DATE OF EXAM: 11/06/2019 COMPARISON: 07/16/2019 HISTORY: Metastatic breast ca, nausea and vomiting CONTRAST: Standard multiplanar, multisequence MRI departmental protocol utilizing 6 mL intravenous Gadavist susan olinium contrast. Ventricles have normal size. There is no mass effect nor midline shift. There is no sign of intracran ial hemorrhage. I see no evidence of an acute cortical infarct. Corpus callosum appears intact. Brain stem is intact. There are a few scattered white matter high signal foci at the holloway-white matter junc tion of the left cerebral hemisphere more than the right. Total number is less than 10. These measure up to 4 mm. There is no evidence of posterior fossa mass. The contrast images show no pathologic enhancement. There is normal contrast opacification of the reyes ous sinuses. IMPRESSION: Mild atrophy. There are a few scattered small white matter high signal foci not significantly differe nt than last exam and could relate to minimal microvascular ischemia. No evidence of metastatic disea se.
== END | disposition home or self-care (01) ==
LOC: RADMRIMAIN 15:41
PROVIDERS: ATTEND Internal Medicine Hematology & Oncology
DX: G31.9 Degenerative disease of nervous system, unspecified (principal); C50.312 Malignant neoplasm of lower-inner quadrant of left female breast
CPT/HCPCS: 70553; A9585

== ENCOUNTER → 2019-11-17 | Outpatient (CLI) | payer MEDICARE ==
--- NOTE | 2019-11-20 06:34 | PE ---
EXAMINATION TYPE: PET CT fusion skull to thigh DATE OF EXAM: 11/17/2019 COMPARISON: Prior PET/CT July 20, 2019 and older study April 14, 2019. CTA chest June 07 9. HISTORY: Left-sided breast cancer originally diagnosed 2010 with relatively recent metastatic disease progress study. TECHNIQUE: Following the intravenous administration of 13.9 mCi of F-18 FDG, whole body images are p erformed from the skull base to the midthigh. Images are reviewed on the computer in the coronal, ax ial, and sagittal planes. Reconstructed rotating images are created on independent workstation and r eviewed on the computer. A noncontrast CT is performed in conjunction with the PET scan. SCAN: Subsequent Scan FINDINGS: SKULL BASE AND NECK: No new areas of suspicious hypermetabolic uptake. CHEST, MEDIASTINUM, AND HILAR REGION: Redemonstration of superior aspect left lower lobe nodule shows continued decrease size measuring 9 x 8 mm axial image 72 and is currently ametabolic, max SUV less than 2.5. Inferior lateral to this redemonstration of inferior left upper lobe nodule now measuring 12 x 11 mm axial image 81 that is a metabolic, max SUV is 1.31 on current study versus 1.5 on prior report. Persistent mild abnormal hypermetabolic uptake corresponding to left hilar just under 1 cm lymph node axial image 83, max SUV is on current study 3.26 versus 3.5 on most recent prior PET/CT. Finding ove rall slightly improved. New focus of subcentimeter hypermetabolic uptake corresponding to subcentimeter left subcarinal lymph node axial image 83, max SUV is 2.91. Scattered smaller nodules remain less well-visualized with exception of right apical linear scarring that has more nodular appearance medially axial images 57 through 62 remains ametabolic. ABDOMEN AND PELVIS: Normal excretion redemonstrated. No new areas of suspicious hypermetabolic uptake . OSSEOUS STRUCTURES: No new areas of suspicious hypermetabolic uptake. Resolution of abnormal hypermet abolic uptake at the L4 vertebral body level with sclerotic mild compression type fracture remaining present. OTHER CT: Redemonstration of left breast implant. Dependent atelectasis bilateral lower lobes. Stable 1.2 cm low-density lesion right hepatic dome periphery consistent with simple thin-walled cyst axial image 110. Uterus surgically absent or markedly atrophic. Occasional scattered pelvic phleboli ths. Occasional distal sigmoid colonic diverticula. New mild diffuse soft tissue anasarca or fat stranding over the bilateral gluteal regions suspect pro duct of lying supine for too long a period, correlate clinically. Slight scoliotic curvature with multilevel spurring throughout the spine. IMPRESSION: Overall mixed response with suspicious new subcentimeter hypermetabolic uptake left aspec t subcarinal level felt to reflect thoracic adenopathy progression but overall improvement in max SUV at left hilar level and in the scattered small left lung nodules which are currently ametabolic and decreased in size from most recent prior PET.
== END | disposition home or self-care (01) ==
LOC: RADPETMAIN 08:03
PROVIDERS: ATTEND Internal Medicine Hematology & Oncology
DX: C50.312 Malignant neoplasm of lower-inner quadrant of left female breast (principal); Z92.21 Personal history of antineoplastic chemotherapy
CPT/HCPCS: 78815; A9552

== ENCOUNTER → 2020-02-27 | Outpatient (CLI) | payer MEDICARE ==
--- NOTE | 2020-02-28 09:41 | MM ---
Reason for exam: additional evaluation requested from prior study. Last mammogram was performed 1 year ago. History: Patient is postmenopausal, has history of breast cancer at age 61, has history of high-risk lesion on a previous biopsy at age 53, and history of other cancer. Family history of breast cancer in daughter at age 41, premenopausal breast cancer in sister at age 30, and breast cancer in sister at age 50. Mastectomy of the left breast, February 15, 2012. Malignant US LT VAD breast biopsy of the left breast, January 31, 2012. Silicone gel implant in the left breast, 2011. Benign right mammotome panel of the right breast, July 22, 2005. Stereotactic core biopsy of the left breast, June 24, 2004. 2 cyst aspirations of the left breast. Cyst aspiration of the right breast. Excisional biopsy of the left breast. Took estrogen for 6 years beginning at age 52. Taking antineoplastic for 4 years beginning at age 61. Taking other hormone for 3 years. Physical Findings: Nurse did not find any significant physical abnormalities on exam. MG 3D Diag Mammo W/Cad RT CC, MLO, spot compression MLO, and LM view(s) were taken of the right breast. Prior study comparison: February 16, 2019, right breast MG 3d diag mammo w/cad RT. February 14, 2018, right breast MG 3d diag mammo w/cad RT. The breast tissue is heterogeneously dense. This may lower the sensitivity of mammography. Previous mammotome biopsy in the right upper outer quadrant. Superior asymmetric density does not persist on additional views. No significant new findings when compared with previous films. These results were verbally communicated with the patient and result sheet given to the patient on 02/27/20. ASSESSMENT: Benign, BI-RAD 2 RECOMMENDATION: Follow-up diagnostic mammogram of the right breast in 1 year.
== END | disposition home or self-care (01) ==
LOC: RADMAMWWP 10:45
PROVIDERS: ATTEND Internal Medicine Hematology & Oncology
DX: Z85.3 Personal history of malignant neoplasm of breast (principal)
CPT/HCPCS: 77065; G0279; 77061

== ENCOUNTER → 2020-03-07 | Outpatient (CLI) | payer MEDICARE ==
--- NOTE | 2020-03-10 12:10 | PE ---
Nuclear medicine PET/CT HISTORY: Left breast cancer, subsequent Patient received 11.2 mCi F-18 FDG intravenously in delayed scanning was performed from the skull bas e to the mid thighs. Localization and attenuation correction CT scan was performed. Correlation to prior nuclear medicine PET/CT 11/17/2019 Neck and chest: There is no cervical or supraclavicular adenopathy, no suspicious hypermetabolic upta ke. Within the lungs however, there are multiple foci of soft tissue density present similar to prior exam. Within the superior segment of the left upper lobe there is a similar-appearing soft tissue no dule perhaps larger by 1 to 2 mm, SUV is only 2.1. Peripherally within the left lower lobe nodular so ft tissue density measures approximately 7 mm similar to prior however larger density abutting the fi ssure in the left upper lobe measures approximately 18 mm, similar in appearance, SUV is 2.5. Left hi lar node shows an SUV of 2.7, additional focus towards the subcarinal region shows uptake SUV 2.6. Ap ical stellate lesion in the right upper lobe shows a similar appearance. There is no pleural pericard ial effusion. Patient is post left mastectomy. ABDOMEN: The liver shows a cyst stable appearance. No retroperitoneal adenopathy. No adrenal mass. Ga llbladder, spleen, kidneys and pancreas show similar appearance. There is no ascites. There is a smal l umbilical hernia containing fat. Uterus and adnexal structures not seen. Osseous structures show a similar appearance to prior exam, there are areas of sclerotic density cons istent with bone metastasis as on prior exam involving the pelvis especially the left sacrum and iliu m as well as the lumbar spine and thoracic spine. IMPRESSION: Intensity of the abnormalities seen on prior exam in the left chest has changed slightly, improvement in the intensity the left hilar region, subcarinal region, slight interval increase in i ntensity in superior segment left lower lobe nodule, soft tissue masses within the left lung show sim ilar appearance.
== END | disposition home or self-care (01) ==
LOC: RADPETMAIN 09:57
PROVIDERS: ATTEND Internal Medicine Hematology & Oncology
DX: R91.1 Solitary pulmonary nodule (principal); R91.8 Other nonspecific abnormal finding of lung field; C50.312 Malignant neoplasm of lower-inner quadrant of left female breast
CPT/HCPCS: 78815; A9552

== ENCOUNTER → 2020-04-08 | Outpatient (CLI) | payer MEDICARE ==
--- NOTE | 2020-04-08 13:44 | XR ---
EXAMINATION TYPE: XR chest 2V DATE OF EXAM: 04/08/2020 CLINICAL HISTORY: Shortness of breath. History of breast cancer. TECHNIQUE: Frontal and lateral views of the chest are obtained. 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 FINDINGS: The cardiomediastinal silhouette is within normal limits for size. Pulmonary vasculature i s normal. There are a couple redemonstrated spiculated lung nodules seen on the left lung, and promin ence of the bilateral mis. There is no pleural effusion or pneumothorax seen. No evidence of displac ed fracture. IMPRESSION: 1. No new focal consolidation. No pleural effusion or pneumothorax. 2. Spiculated nodules over the left lung and hilar adenopathy are redemonstrated from 03/07/2020 PET C T comparison. Some of the metastatic lung nodules are better appreciated on prior CT and not seen on current radiograph.
== END | disposition home or self-care (01) ==
LOC: RADXRMAIN 12:00
PROVIDERS: ATTEND Internal Medicine Hematology & Oncology
DX: R91.8 Other nonspecific abnormal finding of lung field (principal); R59.9 Enlarged lymph nodes, unspecified; C43.9 Malignant melanoma of skin, unspecified; G43.119 Migraine with aura, intractable, without status migrainosus; I34.1 Nonrheumatic mitral (valve) prolapse; C50.312 Malignant neoplasm of lower-inner quadrant of left female breast
CPT/HCPCS: 71046

== ENCOUNTER → 2020-05-30 | Outpatient (CLI) | payer MEDICARE ==
--- NOTE | 2020-06-03 09:42 | PE ---
Nuclear medicine PET/CT HISTORY: Breast carcinoma left, subsequent Tissue received 10.7 mCi F-18 FDG intravenously in delayed scanning was performed from the skull base to the mid thighs. Localization and attenuation correction CT scan was performed. Correlation to prior nuclear medicine PET/CT dated 03/07/2020 Chest and neck: There is no evident cervical or supraclavicular adenopathy. No mediastinal, axillary, or hilar adenopathy. The nodular densities seen within the superior segment of the left lower lobe, left lower lobe are again noted, mild uptake is present, dominant lesion only shows uptake SUV 2.0. T he lesion in the superior segment left lower lobe measures approximately 12 mm in greatest dimension, lesion in the left lower lobe measures 17 mm, smaller lesion in the left lower lobe laterally measur es 9 mm. On previous exam, the lesions were similar in size, subcarinal node does not show hypermetab olic uptake which was seen on prior. There is no pleural or pericardial effusion. Patient shows left breast prosthesis. ABDOMEN: There is no evident liver mass. No retroperitoneal adenopathy or ascites. No suspicious upta ke. Osseous structures are remarkable for sclerotic foci within the vertebral bodies, pelvis similar to p rior exam, no suspicious uptake. IMPRESSION: Lung nodules are again noted. There is improvement in the subcarinal node, uptake no long er noted.
== END | disposition home or self-care (01) ==
LOC: RADPETMAIN 13:25
PROVIDERS: ATTEND Internal Medicine Hematology & Oncology
DX: C50.312 Malignant neoplasm of lower-inner quadrant of left female breast (principal); R91.8 Other nonspecific abnormal finding of lung field
CPT/HCPCS: 78815; A9552

== ENCOUNTER → 2020-10-24 | Outpatient (CLI) | payer MEDICARE ==
--- NOTE | 2020-10-27 10:56 | PE ---
EXAMINATION TYPE: PET CT fusion skull to thigh DATE OF EXAM: 10/24/2020 COMPARISON: No recent CT examinations Prior PET/CT: 05/30/2020 HISTORY: Breast cancer, bone metastases TECHNIQUE: Following the intravenous administration of 12.06 mCi of F-18 FDG, whole body images are performed from the skull base to the midthigh. Images are reviewed on the computer in the coronal, a xial, and sagittal planes. Reconstructed rotating images are created on independent workstation and reviewed on the computer. A localization and attenuation correction CT is performed in conjunction with the PET scan. DLP: 298.61 mGycm SCAN: Subsequent Blood glucose: 100 mg/dL Average Mediastinum SUV: 1.93 Average Liver SUV: 2.64 FINDINGS: NECK: No abnormal uptake THORAX: Small nodules identified on the localization CT or measured. Image 67, the posterior left holley g nodule measures 1.13 SUV. Image 77 of the medial left lung nodule measures 1.84 SUV. Image 52 media l right apex nodule measures 0.51. No abnormal uptake within the mediastinum is identified. ABDOMEN: No abnormal uptake PELVIS: No abnormal uptake OSSEOUS STRUCTURES: There is some mild diffuse uptake within the left greater trochanter, image 197 w ith SUV 1.55. LOCALIZATION CT: There is a 0.6 cm density within the medial right apex. This extends inferiorly. Th ere is a 0.9 cm lobular density posterior left upper lung field. Series 3 image 68 small density may be within the periphery right upper lobe. Series 3 image 71.4 cm nodules in the periphery of the left midlung. Series 3 image 76. There is a 1.0 cm nodule periphery left upper lobe. Scattered small medi astinal lymph nodes are present. The ascending thoracic aorta at the level of main pulmonary artery i s 3.1 cm. The main pulmonary bifurcation is 2.4 cm. Left breast prosthesis is present. There is a hyp odensity within the right lobe liver measuring 1.4 cm. Appears to be a prior fracture of the left pub ic ramus. There are a few scattered punctate sclerotic areas which are nonspecific. There are sclerot ic changes at the left sacroiliac joint within the L5, L3, L2, L1, T12 and T11 levels which can be co mpatible with metastatic changes. Additional punctate areas are present. Sclerotic metastasis in the region of T4 and within the left pedicle at the level. COMPARISON: There may be some diminished SUV within the lung nodules. Suspicious uptake within the sc lerotic lesions is not identified. IMPRESSION: 1. Diminishing radiotracer within lung nodules. 2. No abnormal uptake within a sclerotic osseous metastasis. 3. New mild uptake within the greater trochanter on the left. Inflammatory change could be considered . Trauma could be considered. New metastasis should be considered
== END | disposition home or self-care (01) ==
LOC: RADPETMAIN 12:02
PROVIDERS: ATTEND Internal Medicine Hematology & Oncology
DX: C50.312 Malignant neoplasm of lower-inner quadrant of left female breast (principal); C79.51 Secondary malignant neoplasm of bone; R91.8 Other nonspecific abnormal finding of lung field; Z92.21 Personal history of antineoplastic chemotherapy
CPT/HCPCS: 78815; A9552

== ENCOUNTER → 2021-03-07 | Outpatient (CLI) | payer MEDICARE ==
--- NOTE | 2021-03-10 11:43 | PE ---
EXAMINATION TYPE: PET CT fusion skull to thigh DATE OF EXAM: 03/07/2021 COMPARISON: No recent Prior PET/CT: 10/24/2019 HISTORY: Breast cancer, bone metastases TECHNIQUE: Following the intravenous administration of 11.09 mCi of F-18 FDG, whole body images are performed from the skull base to the midthigh. Images are reviewed on the computer in the coronal, a xial, and sagittal planes. Reconstructed rotating images are created on independent workstation and reviewed on the computer. A localization and attenuation correction CT is performed in conjunction with the PET scan. DLP: 336.39 mGycm SCAN: Subsequent Scan Blood glucose: 87 mg/dL Average Mediastinum SUV: 1.48 Average Liver SUV: Length 3 3 FINDINGS: NECK: No suspicious uptake THORAX: There is focal uptake within the left midlung nodule. The SUV value is 2.38 which is intermed iate. Findings can be compatible with metastasis. Inflammatory changes within the differential. Previ ous SUV 1.84. Older report from May 2020 reported approximately SUV 2.0. A posterior left upper lobe nodule, image 67, currently has an SUV value of 1.08, previous value of 0.97. A left suprahilar lymph node has an SUV 1.58, previous value of 1.97. Image 85. ABDOMEN: No suspicious uptake PELVIS: There is a focus of radiotracer accumulation adjacent to the right gluteal musculature and stein bcutaneous margin with an SUV value of 1.38, previous value of 2.38. Some inflammatory change may be within the more superficial soft tissues is stable. OSSEOUS STRUCTURES: Uptake remains present within the left greater trochanter with an SUV value 2.37. LOCALIZATION CT: There is a left breast prosthesis. COMPARISON: There is mild increasing SUV at reference lesions. IMPRESSION: 1. Slight increase of intermediate SUV uptake within the left lung nodules. 2. New abnormal uptake within a left suprahilar lymph node. 3. Increased uptake within the left trochanteric focus of radiotracer. 4. Focal uptake right buttocks region increasing. Inflammatory changes left buttocks appears similar
== END | disposition home or self-care (01) ==
LOC: RADPETMAIN 07:37
PROVIDERS: ATTEND Internal Medicine Hematology & Oncology
DX: C50.312 Malignant neoplasm of lower-inner quadrant of left female breast (principal); C79.51 Secondary malignant neoplasm of bone
CPT/HCPCS: 78815; A9552

== ENCOUNTER → 2021-03-12 | Outpatient (CLI) | payer MEDICARE ==
--- NOTE | 2021-03-13 10:11 | MM ---
Reason for exam: additional evaluation requested from prior study. Last mammogram was performed 1 year ago. History: Patient is postmenopausal, has history of breast cancer at age 61, has history of high-risk lesion on a previous biopsy at age 53, and history of other cancer. Family history of breast cancer in daughter at age 41, premenopausal breast cancer in sister at age 30, and breast cancer in sister at age 50. Mastectomy of the left breast, February 15, 2012. Malignant US LT VAD breast biopsy of the left breast, January 31, 2012. Silicone gel implant in the left breast, 2011. Benign right mammotome panel of the right breast, July 22, 2005. Stereotactic core biopsy of the left breast, June 24, 2004. 2 cyst aspirations of the left breast. Cyst aspiration of the right breast. Excisional biopsy of the left breast. Took estrogen for 6 years beginning at age 52. Taking antineoplastic for 9 years beginning at age 61. Taking other hormone for 2 years beginning at age 68. Physical Findings: Nurse did not find any significant physical abnormalities on exam. MG 3D Diag Mammo W/Cad RT CC and MLO view(s) were taken of the right breast. Prior study comparison: February 27, 2020, right breast MG 3d diag mammo w/cad RT. February 16, 2019, right breast MG 3d diag mammo w/cad RT. The breast tissue is heterogeneously dense. This may lower the sensitivity of mammography. Previous mammotome biopsy in the right breast. No significant new findings when compared with previous films. These results were verbally communicated with the patient and result sheet given to the patient on 03/12/21. ASSESSMENT: Benign, BI-RAD 2 RECOMMENDATION: Follow-up diagnostic mammogram of the right breast in 1 year.
== END | disposition home or self-care (01) ==
LOC: RADMAMWWP 14:47
PROVIDERS: ATTEND Internal Medicine Hematology & Oncology
DX: Z08 Encounter for follow-up examination after completed treatment for malignant neoplasm (principal); Z85.3 Personal history of malignant neoplasm of breast; Z90.12 Acquired absence of left breast and nipple
CPT/HCPCS: 77065; G0279; 77061

== ENCOUNTER → 2021-05-11 | Outpatient (CLI) | payer MEDICARE ==
--- NOTE | 2021-05-11 09:34 | CT ---
EXAMINATION TYPE: CT angio chest DATE OF EXAM: 05/11/2021 9:16 AM COMPARISON: CTA chest June 07, 2019. PET/CT March 07, 2021 HISTORY: shortness of breath on exertion, cough. History of metastatic breast cancer to bones. CT DLP: 121 mGycm Automated exposure control for dose reduction was used. CONTRAST: CTA scan of the thorax is performed with IV Contrast, patient injected with 100 mL of Isovue 370, pul monary embolism protocol. MIP images are created and reviewed. FINDINGS: LUNGS: Mild to moderate biapical pleural/parenchymal scarring redemonstrated including medial nodular scarring axial image 11 extending inferiorly is stable. Fairly stable 1.1 cm spiculated nodule super ior aspect left lower lobe axial image 35. Stable 8 x 4 mm spiculated nodule right upper lobe axial i mage 44. There is however more suspicious and prominent nodularity inferior and lateral to this. For reference there is 9 x 7 mm lobulated nodule axial image 45 and larger more suspicious 1.7 x 1.3 cm nodule axi al image 49 corresponding to area of slight increased hypermetabolic PET uptake. Dependent atelectasis bilateral lower lobes. No pleural effusion or pneumothorax seen bilaterally. MEDIASTINUM: There is satisfactory enhancement of the central pulmonary arteries. No CT evidence for acute pulmonary embolism The aorta at level of root measures up to 3.1 cm coronal image 49. No aneury sm extension into the ascending aorta. Normal 3 vessel origin from the aortic arch. No aortic dissect ion. There are no greater than 1 cm hilar or mediastinal lymph nodes. No pericardial effusion is se en. OTHER: Unilateral left breast subpectoral implant redemonstrated. Stable 1.7 cm thin-walled cyst rig ht hepatic dome axial Image 98. Some sclerotic osseous metastatic lesions redemonstrated for referenc e superior T10 vertebral coronal image 83 and left T4 lateral elements along with inferior T3 vertebr al coronal image 65. IMPRESSION: No CT evidence for acute pulmonary embolism. Chronic changes with some stable nodules but persistent more suspicious left mid lung nodules redemonstrated. Known osseous metastatic disease ag ain seen.
== END | disposition home or self-care (01) ==
LOC: RADCTMAIN 08:08
PROVIDERS: ATTEND Internal Medicine Hematology & Oncology
DX: C79.51 Secondary malignant neoplasm of bone (principal); R91.8 Other nonspecific abnormal finding of lung field; Z85.3 Personal history of malignant neoplasm of breast
CPT/HCPCS: 82565; 84520; 71275; 36415; Q9967

== ENCOUNTER → 2022-04-02 | Outpatient (CLI) | payer MEDICARE ==
--- NOTE | 2022-04-05 10:12 | MM ---
Reason for Exam: Screening (asymptomatic). Last screening mammogram was performed 12 month(s) ago. Patient History: Menarche at age 10. First Full-Term at age 23. Hysterectomy at age 32. Postmenopausal. Other cancer. Breast cancer, age 61. Estrogen, starting at age 52 for 6 years. Cyst Aspiration on the Right side. Cyst Aspiration on the Left side. Cyst Aspiration on the Left side. Excisional Biopsy on the Left side. 02/15/2012, Mastectomy on the Left side. 01/31/2012, Malignant Core Biopsy on the left side. 07/22/2005, Benign Core Biopsy on the right side. 06/24/2004, Benign Stereotactic Core Biopsy on the left side. 2011, Implant on the left side. Sister had breast cancer, age 30. Sister had breast cancer, age 50. Daughter had breast cancer, age 41. Prior Study Comparison: 02/16/2019 Right Diagnostic Mammogram, [facility]. 02/27/2020 Right Diagnostic Mammogram, [facility]. 03/12/2021 Right Diagnostic Mammogram, [facility]. Tissue Density: Right: The breast tissue is heterogeneously dense. This may lower the sensitivity of mammography. Findings: Analyzed By CAD. Microclip upper-outer quadrant from prior biopsy. Unchanged linear band of tissue along the central inferior right breast on the MLO view. No significant change from prior exams. Overall Assessment: Benign, BI-RAD 2 Management: Screening Mammogram of the right breast in 1 year. 1. Patient should continue monthly self breast exam. 2. A clinical breast exam by your physician is recommended on an annual basis. 3. This exam should not preclude additional follow-up of suspicious palpable abnormalities. Electronically signed and approved by: Alphonse Bee M.D. Radiologist
== END | disposition home or self-care (01) ==
LOC: RADMAMWWP 13:49
PROVIDERS: ATTEND Internal Medicine Hematology & Oncology
DX: Z12.31 Encounter for screening mammogram for malignant neoplasm of breast (principal); Z78.0 Asymptomatic menopausal state; Z80.3 Family history of malignant neoplasm of breast
CPT/HCPCS: 77067

== ENCOUNTER → 2022-08-09 | Outpatient (CLI) | payer MEDICARE ==
--- NOTE | 2022-08-10 15:02 | MR ---
EXAMINATION TYPE: MR lumbar spine wo/w con DATE OF EXAM: 08/09/2022 COMPARISON: 07/17/2019 HISTORY: Breast cancer. Low back pain that radiates down left leg. Decreased height. CONTRAST: 6.5 mL intravenous Gadavist. TECHNIQUE: Multiplanar, multisequence images of the lumbar spine were acquired. FINDINGS: Hypointense lesions are present within the posterior S1 vertebral level through the L4 vertebral body along the superior endplate of L2. Smaller areas appear to be present within additional vertebral le vels within the field of view. The larger lesion may be present T9 at the edge of the [id number]. The lesions appear better visualized on the current examination without significant increase in size. The compression of L4 appears to be chronic. L5-S1: No significant disc bulge or disc herniation. No spinal canal stenosis. There may be some co mpression of the exiting left S1 nerve root adjacent to the sacral lesion. Series 601 image 2. Correl ate for left S1 radicular symptoms. Neural foramen are patent.. L4-L5: No significant disc bulge or disc herniation. No spinal canal stenosis. No foraminal stenosi s. Facet hypertrophy is present. Ligamentum flavum laxity is present with posterior lateral thecal s ac contact slightly greater on the left. L4: There is a compression deformity of L4 which appears chronic. There is some posterior superior wa ll displacement with mild intrathecal sac impression. No AP spinal canal stenosis present. L3-L4: No significant disc bulge or disc herniation. No spinal canal stenosis. No foraminal stenosi s. Facet hypertrophy is present with mild posterior lateral thecal sac contact.. L2-L3: No significant disc bulge or disc herniation. No spinal canal stenosis. No foraminal stenosi s. Mild facet hypertrophy is present with posterior lateral thecal sac contact.. L1-L2: No significant disc bulge or disc herniation. No spinal canal stenosis. No foraminal stenosi s. T12-L1: No significant disc bulge or disc herniation. No spinal canal stenosis. No foraminal stenos is. No abnormal enhancement. IMPRESSION: 1. Appears be compression of the exiting left S1 nerve root at the neural foramen adjacent to the pat ient's known metastatic lesion of S1. Correlate for left S1 radicular symptoms. 2. Compression deformity of L4 appears chronic. 3. Multiple metastatic lesions better visualized without obvious interval growth. No new lesions are identified
== END | disposition home or self-care (01) ==
LOC: RADMRIMAIN 13:56
PROVIDERS: ATTEND Internal Medicine Hematology & Oncology
DX: C50.312 Malignant neoplasm of lower-inner quadrant of left female breast (principal); C79.51 Secondary malignant neoplasm of bone; M48.56XA Collapsed vertebra, not elsewhere classified, lumbar region, initial encounter for fracture
CPT/HCPCS: 72158; A9585

== ENCOUNTER → 2023-04-06 | Outpatient (CLI) | payer MEDICARE ==
--- NOTE | 2023-04-06 11:04 | MM ---
Reason for Exam: Follow-up at short interval from prior study. Last screening mammogram was performed 12 month(s) ago. Patient History: Menarche at age 10. First Full-Term at age 23. Hysterectomy at age 32. Postmenopausal. Other cancer. Breast cancer, age 61. Estrogen, starting at age 52 for 6 years. Cyst Aspiration on the Right side. Cyst Aspiration on the Left side. Cyst Aspiration on the Left side. Excisional Biopsy on the Left side. 02/15/2012, Mastectomy on the Left side. 01/31/2012, Malignant Core Biopsy on the left side. 07/22/2005, Benign Core Biopsy on the right side. 06/24/2004, Benign Stereotactic Core Biopsy on the left side. 2011, Implant on the left side. Sister had breast cancer, age 30. Sister had breast cancer, age 50. Daughter had breast cancer, age 41. Prior Study Comparison: 02/27/2020 Right Diagnostic Mammogram, [facility]. 03/12/2021 Right Diagnostic Mammogram, [facility]. 04/02/2022 Right MG screen jabier unilateral w/cad, [facility]. Tissue Density: Right: The breast tissue is heterogeneously dense. This may lower the sensitivity of mammography. Findings: Analyzed By CAD. Right breast biopsy clip. No new suspicious masses, calcifications or distortions. Overall Assessment: Benign, BI-RAD 2 Management: Screening Mammogram of the right breast in 1 year. Results were given to the patient verbally at the time of exam. Patient should continue monthly self-breast exams. A clinical breast exam by your physician is recommended on an annual basis. This exam should not preclude additional follow-up of suspicious palpable abnormalities. Note on Gissel scores and lifetime risk: 1. A Gissel score greater than 3% is considered moderate risk. If this is the case, consider specialist referral to assess eligibility for a risk reducing agent. 2. If overall lifetime risk for the development of breast cancer is 20% or higher, the patient may qualify for future screening with alternating mammogram and breast MRI. Electronically signed and approved by: Werner Donald DO
--- NOTE | 2023-04-06 11:44 | BD ---
EXAMINATION TYPE: Axial Bone Density DATE OF EXAM: 04/06/2023 CLINICAL HISTORY: 72 years old Female. ICD-10 CODE: [id number] OSTEO R HIP Height: 60.2 in Weight: 138 lbs FRAX RISK QUESTIONS: History of Fracture in Adulthood: pelvis(not hip) age 68 Secondary Osteoporosis: 3. Menopause before 45: age 32 partial hysterectomy RISK FACTORS HISTORY OF: Family History of Osteoporosis: yes mother; aunt; grandmother Active: yes Diet low in dairy products/other sources of calcium: yes Postmenopausal woman: age 32 partial hysterectomy MEDICATIONS: Additional Medications: calcium, vit d, ibrance, (cancer med), xgeva (cancer med), faslodex (cancer m ed),cholesterol meds, anti depressant, vit b12, folate, eye vitamins , Additional History: pt had breast cancer with chemo; pt had radiation to spine 2018 EXAM MEASUREMENTS: Bone mineral densitometry was performed using the [employer] System. Bone mineral density as measured about the Lumbar spine is: ----- L1-L4(G/cm2): 1.219 T Score Values are as follows: ----- L1: 0.1 ----- L2: -0.6 ----- L3: 1.0 ----- L4: 0.3 ----- L1-L4: 0.3 Z Score Values are as follows: ----- L1: 1.9 ----- L2: 1.2 ----- L3: 2.8 ----- L4: 2.1 ----- L1-L4: 2.1 Bone mineral density has: Increased 15.4% since study of: 02/10/2017 Bone mineral density about the R hip (g/cm2): 0.845 Bone mineral density about the L hip (g/cm2): 0.814 T Score values are as follows: -----R Neck: -2.2 -----L Neck: -2.2 -----R Total: -1.3 -----L Total: -1.5 Z Score values are as follows: -----R Neck: -0.3 -----L Neck: -0.3 -----R Total: 0.4 -----L Total: 0.2 Bone mineral density has: Increased 1.1% since study of: 02/10/2017 FRAX%s: The graph provided illustrates a 33.9% chance for a major osteoporotic fx and a 16.7% chance for the hips probability for fx in 10 years time. IMPRESSION: Osteopenia (T Score between -2.5 and -1). There is slightly increased risk of fracture and the patient may be considered for treatment. Re-Screen 2-5 years. NOTE: T-SCORE=SD OF THE YOUNG ADULT MEAN.
== END | disposition home or self-care (01) ==
LOC: RADBDWWP 09:57
PROVIDERS: ATTEND Internal Medicine
DX: C50.912 Malignant neoplasm of unspecified site of left female breast (principal); M85.89 Other specified disorders of bone density and structure, multiple sites; Z78.0 Asymptomatic menopausal state; Z80.3 Family history of malignant neoplasm of breast
CPT/HCPCS: 77080; 77065; G0279; 77061

== ENCOUNTER → 2024-02-17 | Outpatient (CLI) | payer MEDICARE ==
--- NOTE | 2024-02-21 10:17 | MR ---
EXAMINATION TYPE: MR hip LT wo con DATE OF EXAM: 02/17/2024 COMPARISON: Correlation PET/CT 03/07/2021 HISTORY: 73-year-old [id number] MALIG NEOPLASM LOWER INNER QUADRANT OF LEF, Left hip pain worse wi th mobility TECHNIQUE: Multiplanar, multisequence images of the left hip were obtained without IV contrast. FINDINGS: Old sclerosis and heterogeneity of the left side of the sacrum and posterior left iliac bone redemons trated. Similar areas within the posterior left acetabulum as well as old healed fracture deformity l eft inferior pubic ramus all redemonstrated, unchanged configuration compared to 03/07/2021. Some scat tered bright T2 signal is present in these areas, also suspected chronic. However, given some edema in the soft tissues in the left iliac crest involving the iliacus muscle, d ifficult to exclude an early insufficiency fracture. Short interval follow-up can be performed. There is also irregularity along the left SI joint with some increased fluid signal suggesting second juvenal osteoarthrosis. No new area of osseous destruction or definite new osseous lesion is identified. There is some increased signal at the bilateral gluteal insertions suggesting tendinosis. Physiologic bilateral hip effusions. No hip fracture seen. Either tears or sublabral recesses along t he anterior superior quadrant of the bilateral hips. The hamstrings and rectus femoris origins as well as the iliopsoas insertions remain intact. Nodular fact and edematous change throughout the subcutaneous adipose overlying the gluteal musculatu re favored to reflect sequela of chronic inflammation, possible augmentation procedure or prior traum a. IMPRESSION: 1. Findings within the left sacrum, posterior left iliac bone, and posterior left acetabulum favored to represent old osseous metastatic disease. The overall configuration is similar compared to the [facility] ient's 03/07/2021 PET/CT. No convincing new disease. No hip fracture or AVN. Old fracture left inferio r pubic ramus. 2. However, given some mild scattered bright T2 signal within the regions of previous disease as well as iliacus muscle edema along the left iliac crest, unable to exclude an early insufficiency fractur e. Consider short interval follow-up CT or MRI to reassess. 3. Secondary osteoarthrosis left SI joint. 4. Symmetric appearance to the bilateral gluteal insertional tendinosis. 5. Correlate for any prior augmentation procedure or posttraumatic etiology to the appearance of the subcutaneous fat overlying the glutes.
== END | disposition home or self-care (01) ==
LOC: RADMRIMAIN 13:57
PROVIDERS: ATTEND Internal Medicine Hematology & Oncology
DX: M47.898 Other spondylosis, sacral and sacrococcygeal region (principal); C50.312 Malignant neoplasm of lower-inner quadrant of left female breast; M25.552 Pain in left hip

== ENCOUNTER → 2024-03-09 | Outpatient (CLI) | payer MEDICARE ==
--- NOTE | 2024-03-09 17:28 | CA ---
Transthoracic Echo Report Name: Carmen Reeder Age: 73 Gender: F : 1950 Exam Date: 03/09/2024 13:23 Exam Location: [place] [facility] Ht (in): 60 Wt (lb): 140 Ordering Physician: Tianna Hebert MD Attending/Referring Phys: Earle Balderas MD [employer] Lula Bender, BOB Procedure CPT: Indications: I34.0 NONRHEUMATIC MITRAL (VALVE) INSUFFICIENCY Cardiac Hx: Breast Implants Technical Quality: Good, Fair Contrast 1: Total Dose (mL): Contrast 2: Total Dose (mL): MEASUREMENTS (Male / Female) Normal Values 2D ECHO LV Diastolic Diameter PLAX 3.5 cm 4.2 - 5.9 / 3.9 - 5.3 cm LV Systolic Diameter PLAX 2.3 cm IVS Diastolic Thickness 0.9 cm 0.6 - 1.0 / 0.6 - 0.9 cm LVPW Diastolic Thickness 0.9 cm 0.6 - 1.0 / 0.6 - 0.9 cm LV Relative Wall Thickness 0.5 LVOT Diameter 1.7 cm LV Diastolic Volume MOD BP 33.3 cm??? 67 - 155 / 56 - 104 cm??? LV Systolic Volume MOD BP 13.8 cm??? 22 - 58 / 19 - 49 cm??? LV Ejection Fraction MOD BP 58.6 % >= 55 % LV Diastolic Volume MOD 4C 30.7 cm??? LV Systolic Volume MOD 4C 13.4 cm??? LV Ejection Fraction MOD 4C 56.4 % LV Diastolic Length 4C 5.9 cm LV Systolic Length 4C 5.0 cm LV Diastolic Volume MOD 2C 35.7 cm??? LV Systolic Volume MOD 2C 14.3 cm??? LV Ejection Fraction MOD 2C 59.9 % LV Diastolic Length 2C 6.0 cm LV Systolic Length 2C 5.0 cm LA Volume 33.8 cm??? 18 - 58 / 22 - 52 cm??? LA Volume Index 20.4 cm???/m??? 16 - 28 cm???/m??? M-MODE Aortic Root Diameter MM 2.8 cm LA Systolic Diameter MM 2.5 cm LA Ao Ratio MM 0.9 AV Cusp Separation MM 2.0 cm DOPPLER AV Peak Velocity 93.1 cm/s AV Peak Gradient 3.5 mmHg AV Mean Velocity 63.4 cm/s AV Mean Gradient 2.0 mmHg AV Velocity Time Integral 21.4 cm LVOT Peak Velocity 83.9 cm/s LVOT Peak Gradient 2.8 mmHg LVOT Velocity Time Integral 17.7 cm LVOT Stroke Volume 40.1 cm??? LVOT Stroke Volume Index 25.0 ml/m??? AV Area Cont Eq vti 1.9 cm??? AV Area Cont Eq pk 2.0 cm??? Mitral E Point Velocity 67.6 cm/s Mitral A Point Velocity 77.6 cm/s Mitral E to A Ratio 0.9 MV Deceleration Time 180.0 ms LV E' Lateral Velocity 10.2 cm/s Mitral E to LV E' Lateral Ratio 6.6 LV E' Septal Velocity 8.4 cm/s Mitral E to LV E' Septal Ratio 8.0 TR Peak Velocity 229.0 cm/s TR Peak Gradient 21.0 mmHg FINDINGS Left Ventricle Left ventricular ejection fraction is estimated at 55-60 %. Normal left ventricular wall motion. Left ventricular cavity size normal. Left ventricular wall thickness normal. Normal global longitudinal strain estimated at -20.4% Right Ventricle Normal right ventricular size and function. Right ventricular systolic pressure within normal limits. Right Atrium Normal right atrial size. Left Atrium Normal left atrial size. Mitral Valve Structurally normal mitral valve. Trace mitral regurgitation. No mitral stenosis. Aortic Valve Trileaflet aortic valve. No aortic stenosis. No aortic regurgitation. Tricuspid Valve Structurally normal tricuspid valve. No tricuspid stenosis. Trace tricuspid regurgitation. Pulmonic Valve Structurally normal pulmonic valve. Trace pulmonic regurgitation. No pulmonic stenosis. Pericardium No pericardial or pleural effusion. Aorta Normal size aortic root and proximal ascending aorta. CONCLUSIONS Normal LV size, wall thickness and systolic function. Estimated LVEF 60%. No obvious regional wall motion abnormality. No significant diastolic dysfunction. No significant valvular dysfunction. Overall normal chamber sizes. No pericardial effusion. No prior echo to compare with. Previewed by: Dr Dg Mathews (Electronically Signed) Final Date: 09 March 2024 17:28
--- NOTE | 2024-03-09 19:31 | US ---
EXAMINATION TYPE: US carotid duplex BILAT DATE OF EXAM: 03/09/2024 COMPARISON: NONE CLINICAL INDICATION: Female, 73 years old with history of I34.0 NONRHEUMATIC MITRAL (VALVE) INSUFFICI ENCY; No hx stroke or tia TECHNIQUE: Carotid duplex ultrasound examination. Indirect Doppler criteria was utilized. FINDINGS: EXAM MEASUREMENTS: RIGHT: Peak Systolic Velocity (PSV) cm/sec ----- Right CCA: 91.4 ----- Right ICA: 101.6 ----- Right ECA: 65.5 ICA/CCA ratio: 1.1 RIGHT: End Diastole cm/sec ----- Right CCA: 29.2 ----- Right ICA: 17.6 ----- Right ECA: 8.4 LEFT: Peak Systolic Velocity (PSV) cm/sec ----- Left CCA: 98.5 ----- Left ICA: 86.6 ----- Left ECA: 104.3 ICA/CCA ratio: 0.9 LEFT: End Diastole cm/sec ----- Left CCA: 19.3 ----- Left ICA: 30.9 ----- Left ECA: 9.8 VERTEBRALS (direction of flow): Right Vertebral: Antegrade Left Vertebral: Antegrade Rhythm: Normal [employer] NOTES: No elevated velocities or significant stenosis. Plaque seen posterior right bulb. IMPRESSION: No ultrasound evidence for hemodynamically significant stenosis of the bilateral visualized carotid a rterial systems. Criteria for Assigning % of Stenosis / Diameter reduction (Estimation based on the indirect measurements of the internal carotid artery velocities (ICA PSV). 1. Normal (no stenosis)=ICA PSV < 125 cm/s: ratio < 2.0: ICA EDV<40 cm/s. 2. Less than 50% stenosis=ICA PSV < 125 cm/s: ratio < 2.0: ICA EDV<40 cm/s. 3. 50 to 69% stenosis=ICA PSV of 125 to 230 cm/s: ration 2.0 ? 4.0: ICA EDV 40-100 cm/s. 4. Greater than 70% stenosis to near occlusion= ICA PSV > 230 cm/s: ratio > 4.0: ICA EDV > 100 cm/s. 5. Near occlusion= ICA PSV velocities may be low or undetectable: variable ratio and ICA EDV. 6. Total occlusion=unable to detect flow.
== END | disposition home or self-care (01) ==
LOC: RADUSWWP 12:34
PROVIDERS: ATTEND Internal Medicine
DX: C50.912 Malignant neoplasm of unspecified site of left female breast (principal); I34.0 Nonrheumatic mitral (valve) insufficiency; I65.23 Occlusion and stenosis of bilateral carotid arteries; Z98.82 Breast implant status
CPT/HCPCS: 93306; 93880

== ENCOUNTER → 2024-04-16 | Outpatient (CLI) | payer MEDICARE ==
--- NOTE | 2024-05-15 08:43 | MM ---
Reason for Exam: Screening (asymptomatic). Last mammogram was performed 1 year(s) and 1 month(s) ago. Patient History: Menarche at age 10. First Full-Term at age 23. Hysterectomy at age 32. Postmenopausal. Other cancer. Breast cancer, age 61. Estrogen, starting at age 52 for 6 years. Cyst Aspiration on the Right side. Cyst Aspiration on the Left side. Cyst Aspiration on the Left side. Excisional Biopsy on the Left side. 01/31/2012, Malignant Core Biopsy on the left side. 07/22/2005, Benign Core Biopsy on the right side. 06/24/2004, Benign Stereotactic Core Biopsy on the left side. 2011, Implant on the left side. Sister had breast cancer, age 30. Sister had breast cancer, age 50. Daughter had breast cancer, age 41. Prior Study Comparison: 03/12/2021 Right Diagnostic Mammogram, [facility]. 04/02/2022 Right MG screen jabier unilateral w/cad, [facility]. 04/06/2023 Right MG 3D diag mammo w/cad RT, [facility]. Tissue Density: Right: The breasts are heterogeneously dense, which may obscure small masses. Findings: Analyzed By CAD. Right breast biopsy clip. Right breast: There is no suspicious group of microcalcifications or new suspicious mass. Left breast: There is no suspicious group of microcalcifications or new suspicious mass. Overall Assessment: Negative, BI-RAD 1 Management: Screening Mammogram of both breasts in [address] [facility] will attempt to contact patient to return for supplemental views and ultrasound if indicated. Patient should continue monthly self-breast exams. A clinical breast exam by your physician is recommended on an annual basis. This exam should not preclude additional follow-up of suspicious palpable abnormalities. Note on Gissel scores and lifetime risk: 1. A Gissel score greater than 3% is considered moderate risk. If this is the case, consider specialist referral to assess eligibility for a risk reducing agent. 2. If overall lifetime risk for the development of breast cancer is 20% or higher, the patient may qualify for future screening with alternating mammogram and breast MRI. Electronically signed and approved by: Werner Donald DO
== END | disposition home or self-care (01) ==
LOC: RADMAMWWP 12:00
PROVIDERS: ATTEND Internal Medicine
DX: Z12.31 Encounter for screening mammogram for malignant neoplasm of breast (principal); Z85.3 Personal history of malignant neoplasm of breast; C50.912 Malignant neoplasm of unspecified site of left female breast; I34.0 Nonrheumatic mitral (valve) insufficiency; I65.29 Occlusion and stenosis of unspecified carotid artery; Z78.0 Asymptomatic menopausal state; Z80.3 Family history of malignant neoplasm of breast; R92.331 Mammographic heterogeneous density, right breast
CPT/HCPCS: 77063; 77067

== ENCOUNTER 2024-05-21 14:45 | Emergency (ER) | payer MEDICARE ==
[2024-05-21 14:48] VITALS: TEMP 97.8
--- NOTE | 2024-05-21 16:23 | ED ---
Nausea/Vomiting/Diarrhea HPI - General Source: patient, RN notes reviewed Mode of arrival: ambulatory Limitations: no limitations <Fernanda Smith - Last Filed: 05/21/24 18:59> <Rafia Sanchez - Last Filed: 05/21/24 22:33> - General Chief complaint: Nausea/Vomiting/Diarrhea Stated complaint: Diarrhea Time Seen by Provider: 05/21/24 16:21 - History of Present Illness Initial comments: 73-year-old female presented to ER with a chief complaint of diarrhea. Patient has metastatic breast cancer and is currently undergoing chemotherapy through Dr. Balderas. 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 Due to this infection patient was on Flagyl and amoxicillin approximately 1 month ago for treatment of osteonecrosis. States for past 2 weeks she has been having persistent brown diarrhea. She does report a mild cramping sensation with needing to defecate. Denies any hematochezia or melena. Patient was seen by Dr. Hebert her outpatient and prescribed p.o. vancomycin. Patient states she has not been able to obtain medication as no pharmacy in [facility] has not stocked. Patient believes she is dehydrated as she has been having persistent diarrhea for 2 weeks and having a decreased appetite. Does report mild nausea with intermittent episodes of vomiting. Denies any chest pain, shortness of breath, current abdominal pain, urinary complaints or peripheral edema. Denies any fevers or chills. (Fernanda Smith) - Related Data Home Medications Medication Instructions Recorded Confirmed Atorvastatin [Lipitor] 40 mg PO DAILY 05/21/24 05/21/24 Bifidobacterium Infantis [Align] 4 mg PO DAILY 05/21/24 05/21/24 Calcium Carbonate [Calcium] 600 mg PO DAILY 05/21/24 05/21/24 Cetirizine HCl [Zyrtec] 10 mg PO DAILY 05/21/24 05/21/24 Chlorhexidine Gluconate [Peridex] 10 ml PO BID 05/21/24 05/21/24 Cyanocobalamin (Vitamin B-12) 1,000 mcg PO DAILY 05/21/24 05/21/24 [Vitamin B-12] Escitalopram [Lexapro] 20 mg PO DAILY 05/21/24 05/21/24 Folate 1 tab PO DAILY 05/21/24 05/21/24 Loteprednol Etabonate 1 drop BOTH EYES DAILY 05/21/24 05/21/24 Palbociclib [Ibrance] 125 mg PO DIRECTED 05/21/24 05/21/24 Vit C/E/Zn/Coppr/Lutein/Zeaxan 1 cap PO DAILY 05/21/24 05/21/24 [Preservision Areds 2 Softgel] Allergies Allergy/AdvReac Type Severity Reaction Status Date / Time butorphanol [From Stadol] Allergy Unknown Verified 05/21/24 17:02 meperidine [From Demerol] Allergy Unknown Verified 05/21/24 17:02 Sulfa (Sulfonamide Allergy Anaphylaxis Verified 05/21/24 17:02 Antibiotics) Review of Systems ROS Other: All systems not noted in ROS Statement are negative. <Fernanda Smith - Last Filed: 05/21/24 18:59> ROS Other: All systems not noted in ROS Statement are negative. <Rafia Sanchez - Last Filed: 05/21/24 22:33> ROS Statement: Those systems with pertinent positive or pertinent negative responses have been documented in the HPI. Past Medical History Past Medical History: No Reported History Additional Past Medical History / Comment(s): breast CA History of Any Multi-Drug Resistant Organisms: None Reported Additional Past Surgical History / Comment(s): Mastectomy Past Psychological History: No Psychological Hx Reported Past Alcohol Use History: None Reported Past Drug Use History: None Reported <Fernanda Smith - Last Filed: 05/21/24 18:59> General Exam Limitations: no limitations General appearance: alert, in no apparent distress Respiratory exam: Present: normal lung sounds bilaterally. Absent: respiratory distress, wheezes, rales, rhonchi, stridor Cardiovascular Exam: Present: regular rate, normal rhythm, normal heart sounds. Absent: systolic murmur, diastolic murmur, rubs, gallop, clicks GI/Abdominal exam: Present: soft, normal bowel sounds. Absent: distended, tenderness, guarding, rebound, rigid Extremities exam: Present: normal inspection, full ROM, normal capillary refill. Absent: tenderness, pedal edema, joint swelling, calf tenderness Neurological exam: Present: alert, oriented X3, CN II-XII intact Skin exam: Present: warm, dry, intact, normal color. Absent: rash <Fernanda Smith - Last Filed: 05/21/24 18:59> Course Vital Signs 05/21/24 05/21/24 05/21/24 14:46 19:46 20:22 Temperature 97.8 F Pulse Rate 89 74 Respiratory 16 18 16 Rate Blood Pressure 129/64 122/77 O2 Sat by Pulse 98 96 Oximetry Medical Decision Making - Lab Data Result diagrams: 05/21/24 16:34 05/21/24 16:34 <Fernanda Smith - Last Filed: 05/21/24 18:59> - Lab Data Result diagrams: 05/21/24 16:34 05/21/24 16:34 <Rafia Sanchez - Last Filed: 05/21/24 22:33> - Medical Decision Making Was pt. sent in by a medical professional or institution (, PA, AGRICULTURAL EQUIPMENT OPERATOR, urgent care, hospital, or assisted...) When possible be specific @ -No Did you speak to anyone other than the patient for history (EMS, parent, family, police, friend...)? What history was obtained from this source @ -No Did you review nursing and triage notes (agree or disagree)? Why? @ -I reviewed and agree with nursing and triage notes Were old charts reviewed (outside hosp., previous admission, EMS record, old EKG, old radiological studies, urgent care reports/EKG's, assisted records)? Report findings @ -No old charts were reviewed Differential Diagnosis (chest pain, altered mental status, abdominal pain women, abdominal pain men, vaginal bleeding, weakness, fever, dyspnea, syncope, headache, dizziness, GI bleed, back pain, seizure, CVA, palpatations, mental health, musculoskeletal)? @ -Differential Abdominal Pain Women:Appendicitis, Cholecystitis, diverticulosis, ischemic bowel, pancreatitis, hepatitis, UTI, gastroenteritis, AAA, incarcerated hernia, bowel obstruction, constipation, inflammatory bowel, hepatitis, peptic ulcer disease, splenic infarction, perforated viscus, vulvitis, ovarian torsion, PID, kidney stone, placenta abruption, this is not meant to be an all-inclusive list EKG interpreted by me (3pts min.). @ -None X-rays interpreted by me (1pt min.). @ -None done CT interpreted by me (1pt min.). @ -None done U/S interpreted by me (1pt. min.). @ -None done What testing was considered but not performed or refused? (CT, X-rays, U/S, labs)? Why? @ -None What meds were considered but not given or refused? Why? @ -None Did you discuss the management of the patient with other professionals (professionals i.e. , PA, AGRICULTURAL EQUIPMENT OPERATOR, lab, RT, psych nurse, administrator social welfare, activity aide, teacher, chief revenue officer, case management assistant)? Give summary @ -No Was smoking cessation discussed for >3mins.? @ -No Was critical care preformed (if so, how long)? @ -No Were there social determinants of health that impacted care today? How? (Homelessness, low income, unemployed, alcoholism, drug addiction, mott sportation, low edu. Level, literacy, decrease access to med. care, [facility], rehab)? @ -No Was there de-escalation of care discussed even if they declined (Discuss DNR or withdrawal of care, Hospice)? DNR status @ -No What co-morbidities impacted this encounter? (DM, HTN, Smoking, COPD, CAD, Cancer, CVA, ARF, Chemo, Hep., AIDS, mental health diagnosis, sleep apnea, morbid obesity)? @ -Metastatic breast cancer Was patient admitted / discharged? Hospital course, mention meds given and route, prescriptions, significant lab abnormalities, going to OR and other pertinent info. @ -73 year old female presented to ER with a chief complaint of diarrhea. History and physical exam completed. Vitals within normal limits. Patient in no signs of acute distress and nontoxic-appearing. Abdominal exam unremarkable. Laboratory studies obtained leukopenia leukopenia 2.6 which appears to be around patient's baseline. CMP unremarkable. C. difficile pending. Patient given 1L IV fluids in ER. Patient signed out to Rafia Sanchez PA-C pending c.diff results and disposition. (Fernanda Smith) Patient was signed out to me pending stool sample results. Patient was in the emergency department for over 4-1/2 hours and has not had an episode of diarrhea or stooling since she has been here. Recommend that patient leaves a urine sample with her primary care provider outpatient for further evaluation of potential C. difficile. Lengthy discussion with the patient at bedside that C. difficile is unlikely due to not having bowel movement while being in the emergency department. All questions answered at bedside and strict return parameters discussed with the patient she is verbalized understanding. [facility] - Lab Data Lab Results 05/21/24 05/21/24 05/21/24 Range/Units 16:34 16:34 16:34 WBC 2.6 L (3.8-10.6) k/uL RBC 3.35 L (3.80-5.40) m/uL Hgb 11.7 (11.4-16.0) gm/dL Hct 35.4 (34.0-46.0) % MCV 105.8 H (80.0-100.0) fL MCH 35.1 H (25.0-35.0) pg MCHC 33.2 (31.0-37.0) g/dL RDW 14.7 (11.5-15.5) % Plt Count 243 (150-450) k/uL MPV 10.4 Neutrophils % (Manual) 60 % Lymphocytes % (Manual) 26 % Monocytes % (Manual) 13 % Eosinophils % (Manual) 1 % Neutrophils # (Manual) 1.56 (1.3-7.7) k/uL Lymphocytes # (Manual) 0.68 L (1.0-4.8) k/uL Monocytes # (Manual) 0.34 (0-1.0) k/uL Eosinophils # (Manual) 0.03 (0-0.7) k/uL Nucleated RBCs 0 (0-0) /100 WBC Manual Slide Review Performed Macrocytosis Moderate Sodium 140 (137-145) mmol/L Potassium 3.7 (3.5-5.1) mmol/L Chloride 107 (98-107) mmol/L Carbon Dioxide 28 (22-30) mmol/L Anion Gap 5 mmol/L BUN 12 (7-17) mg/dL Creatinine 0.70 (0.52-1.04) mg/dL Est GFR (CKD-EPI)AfAm >90 (>60 ml/min/1.73 sqM) Est GFR (CKD-EPI)NonAf 86 (>60 ml/min/1.73 sqM) Glucose 85 (74-99) mg/dL Plasma Lactic Acid Geovany 0.9 (0.7-2.0) mmol/L Calcium 8.9 (8.4-10.2) mg/dL Total Bilirubin 0.7 (0.2-1.3) mg/dL AST 25 (14-36) U/L ALT 12 (4-34) U/L Alkaline Phosphatase 42 (38-126) U/L Total Protein 5.5 L (6.3-8.2) g/dL Albumin 3.3 L (3.5-5.0) g/dL Amylase 59 (30-110) U/L Lipase 103 (23-300) U/L Disposition <Fernanda Smith - Last Filed: 05/21/24 18:59> Is patient prescribed a controlled substance at d/c from ED?: No Time of Disposition: 19:57 <Rafia Sanchez - Last Filed: 05/21/24 22:33> Clinical Impression: Diarrhea Disposition: HOME SELF-CARE Condition: Good Instructions (If sedation given, give patient instructions): Acute Diarrhea (ED) Additional Instructions: Return to the emergency department for any new or worsening symptoms. Recommend that you drop off stool sample with your primary care provider for further evaluation. Referrals: Tianna Hebert MD [Primary Care Provider] - 1-2 days
[2024-05-21] MEDS: SODIUM CHLORIDE 0.9% 1,000 ML IV STA (16:38)
[2024-05-21 16:52] LABS: ALT 12 U/L (4-34); AST 25 U/L (14-36); African American GFR (CKD) >90 (>60 ml/min/1.73 sqM); Albumin 3.3 g/dL (3.5-5.0); Alkaline Phosphatase 42 U/L (38-126); Anion Gap 5 mmol/L; Blood Urea Nitrogen 12 mg/dL (7-17); Calcium 8.9 mg/dL (8.4-10.2); Carbon Dioxide 28 mmol/L (22-30); Chloride 107 mmol/L (98-107); Glucose 85 mg/dL (74-99); Non-African American GFR(CKD) 86 (>60 ml/min/1.73 sqM); Potassium 3.7 mmol/L (3.5-5.1); Sodium 140 mmol/L (137-145); Total Bilirubin 0.7 mg/dL (0.2-1.3); Total Protein 5.5 g/dL (6.3-8.2)
[2024-05-21 16:59] LABS: HCT 35.4 % (34.0-46.0); HGB 11.7 gm/dL (11.4-16.0); MCH 35.1 pg (25.0-35.0); MCHC 33.2 g/dL (31.0-37.0); MCV 105.8 fL (80.0-100.0); Macrocytosis Moderate; Mean Platelet Volume 10.4; Platelet Count 243 k/uL (150-450); RBC 3.35 m/uL (3.80-5.40); RDW 14.7 % (11.5-15.5); WBC 2.6 k/uL (3.8-10.6)
[2024-05-21 17:27] LABS: Eosinophils # (M) 0.03 k/uL (0-0.7); Lymphocytes # (M) 0.68 k/uL (1.0-4.8); Monocytes # (M) 0.34 k/uL (0-1.0); Neutrophils # (M) 1.56 k/uL (1.3-7.7); Neutrophils % (M) 60 %; Nucleated Red Blood Cells 0 /100 WBC (0-0); Total Cells Counted 100
[2024-05-21 18:16] LABS: Amylase 59 U/L (30-110); Lipase 103 U/L (23-300)
[2024-05-21 19:47] VITALS: BP 122/77; PULSE 74
[2024-05-21 20:22] VITALS: RESP 16
== END 2024-05-21 20:22 | disposition home or self-care (01) ==
LOC: EC 14:45
DX: R19.7 Diarrhea, unspecified
CPT/HCPCS: 36415; 80053; 82150; 83605; 83690; 85025; 96360; 99284

== ENCOUNTER → 2025-03-14 | Outpatient (CLI) | payer MEDICARE ==
--- NOTE | 2025-03-14 08:33 | US ---
EXAMINATION TYPE: US abdomen complete DATE OF EXAM: 03/14/2025 COMPARISON: PET/CT 03/07/2021 CLINICAL INDICATION: Female, 74 years old with history of R10.11 RUQ abd pain; ruq pain x 3 months TECHNIQUE: Grayscale and color Doppler imaging of the abdomen was performed. FINDINGS: EXAM MEASUREMENTS: Liver Length: 12.0 Gallbladder Wall: 0.2m CBD: 0.4m, color Doppler imaging was utilized to isolate the common bile duct for measurement. 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 The liver demonstrates diffusely increased echogenicity and difficulty to penetrate with heterogenous echotexture. No focal lesion identified. The visualized gallbladder de monstrates no stones, wall thickening or surrounding fluid. Negative sonographic Garcia's sign. The v isualized portion of the common bile duct is within normal limits. The spleen is unremarkable. The vi sualized upper SVC and abdominal aorta are within normal limits. Both kidneys demonstrate no hydronep hrosis, shadowing calculus or solid mass. IMPRESSION: 1. No ultrasound evidence for acute process. 2. Hepatic steatosis. [facility], , 03/14/2025 8:30 AM
== END | disposition home or self-care (01) ==
LOC: RADUSWWP 07:54
PROVIDERS: ATTEND Internal Medicine
DX: K76.0 Fatty (change of) liver, not elsewhere classified (principal)
CPT/HCPCS: 76700